=== PATIENT | female | born 1990 ===

== ENCOUNTER 2017-06-23 10:15 | Inpatient (IN) | payer OTHER ==
[~2017-06-23] VITALS: Ht 144.8 cm; Wt 43.5 kg
[~2017-06-23 10:15] MED LIST: FOLIC ACID0.4 MG; PRENATAL + DHA1 EAC1
== END 2017-06-29 14:37 | disposition home or self-care (01) | DRG 775 ==
LOC: LDR 06-27 03:52 → OB/GYN 06-27 03:52
PROC: 10E0XZZ Delivery of Products of Conception, External Approach (ICD-10-PCS; principal; 2017-06-27)
PROC: 0HQ9XZZ Repair Perineum Skin, External Approach (ICD-10-PCS; 2017-06-27)
PROC: 4A1HXCZ Monitoring of Products of Conception, Cardiac Rate, External Approach (ICD-10-PCS; 2017-06-27)
PROC: 4A033R1 Measurement of Arterial Saturation, Peripheral, Percutaneous Approach (ICD-10-PCS; 2017-06-27)
PROC: 10907ZC Drainage of Amniotic Fluid, Therapeutic from Products of Conception, Via Natural or Artificial Opening (ICD-10-PCS; 2017-06-27)
DX: O70.0 First degree perineal laceration during delivery (principal); Z37.0 Single live birth; Z3A.39 39 weeks gestation of pregnancy